=== PATIENT | female | born 1950 | race Caucasian/White ===

== ENCOUNTER 2017-05-04 10:35 | Emergency (ER) | payer MEDICARE, OTHER ==
[~2017-05-04] VITALS: Ht 165.1 cm; Wt 88.5 kg
--- NOTE | ~2017-05-04 | CR72 ---
[facility]. [facility] A Service of [facility] & [facility] RADIOLOGY TEXT RESULTS PATIENT: IVAN GIL LOCATION: SED : 48 UNIT #: [id number] AGE: [address]: Vj Smith MD SEX: F ORDER DR: [id number] [address] [address] [id number] E MR#: [id number] Acc #: [id number] NAME: IVAN GIL : 1950 SEX: F STUDY DATE/TIME: 05/04/2017 12:10 UNIT: SED ROOM: STUDY DESCRIPTION: CR Chest Single View Portable Attending Physician: Vj Smith M.D. Ordering Physician: Vj Smith M.D. Primary Care Physician: Saurabh Goel MEDICAL IMAGING REPORT This report is preliminary unless electronic signature is present. EXAM Single view chest. INDICATIONS Shortness of air and productive cough. Fever. FINDINGS Single portable AP view of the chest compared to 12/04/2016. Heart and mediastinal contours are unchanged. There is mild bibasilar airspace opacities and/or pleural effusion. No pneumothorax. IMPRESSION Mild bibasilar airspace opacities and/or small effusions. This is similar to the patient's prior study. Dictated by... Jean-Claude Marrero M.D. THIS IS AN ELECTRONICALLY VERIFIED REPORT Jean-Claude Marrero M.D. at 05/05/2017 5:11 PM AIRAM/clari TD: 05/04/2017 16:05 JOB #: [id number] MEDICAL IMAGING REPORT Page 1 of 1
--- NOTE | ~2017-05-04 | EKG ---
PATIENT: IVAN GIL UNIT #: [id number] Ventricular Rate: 132 BPM Atrial Rate: 153 BPM QRS Duration: 86 ms Q-T Interval: 296 ms QTC Calculation(Bezet): 438 ms Calculated R [place]: -30 degrees Calculated T [place]: 39 degrees Diagnosis Line: Atrial fibrillation with rapid ventricular Diagnosis Line: response Diagnosis Line: Left axis deviation Diagnosis Line: Cannot rule out Anterior infarct , age Diagnosis Line: undetermined Diagnosis Line: Abnormal ECG Diagnosis Line: When compared with ECG of 04-DEC-2016 18:56, Diagnosis Line: No significant change was found Diagnosis Line: Confirmed by GRACE RUFFIN MD ([id number]) on Diagnosis Line: 05/06/2017 12:44:40 PM INTERPRETING MD: LALY RAMOS
[~2017-05-04 10:35] MED LIST: ADVAIR 250-501 EACH IH; ADVAIR 2501 DISK W/D INH; ALB/IPRATROPIUM/1 E2 INH; ALBUTEROL17 GM; ALBUTEROL17 GM INH; ALLEGRA PO; AMITRYPTYLINE; APRESOLINE; ASPIRIN PO; ASPIRIN81 M1 PO; AUGMENTIN PO; AZITHROMYCIN1 GM PO; BROMPHED DM PO; CARDIZEM CD240 M1 PO; CIPRO PO; COMBIVENT INH14.7 GM INH; COUMADIN; COUMADIN PO; COUMADIN1 MG PO; COUMADIN2.5 MG PO; DARVOCET-N 1001 TAB; DIAZEPAM PO; DOXYCYCLINE; DOXYCYCLINE HY100 M1 PO; DOXYCYCLINE HY100 M3 PO; DUONEB 2.5-0.5 M3 ML; EPIPEN0.3 MG/0.3 INJ; GLIPIZIDE-METFO1 TA4 PO; GLUCOTROL PO; HYCODAN60 ML 5MG/; HYCODAN60 ML 5MG/ PO; ISORDIL PO; KEFLEX500 M1 PO; LASIX PO; LEVAQUIN750 MG PO; LIPITOR20 MG PO; LISINOPRIL10 MG PO; LOPRESSOR PO; MEDROL; MEDROL4 MG/DOSE- PO; METOPROLOL SUC100 MG PO; NASAL SPRAY; NASAL SPRAY30 M1; NEXIUM PO; NITROGYLCERIN SUBLINGUAL; NITROSTAT0.4 MG SL; NORVASC PO; NORVASC10 MG PO; OMEPRAZOLE20 M1 PO; OMEPRAZOLE20 M2 PO; OXYGEN; OXYGEN IH; OXYGEN INH; PERCOCET 5-3251 TAB PO; PERCOCET5/325 PO; PREDNISONE; PREDNISONE PO; PROAIR HFA8.5 GM INH; PROCARDIA10 MG; PROTONIX PO; SIMVASTATIN20 MG PO; SINGULAIR PO; SKELAXIN PO; SPIRIVA18 MCG INH; ST. JOSEPH ASPI81 M3 PO; SYMBICORT INH; TAMBOCAR PO; TESSALON200 MG PO; TOPROL XL PO; ULTRAM PO; VICODIN 5/1 TAB 5/50 PO; VICODIN PO; VITAMIN D; ZITHROMAX; ZITHROMAX PO; ZOVIRAX800 MG PO
[2017-05-04] MEDS ORDERED: LIDOCAINE1 EACH (10:43)
[2017-05-04] MEDS ORDERED: NEURONTIN100 MG (10:43)
[2017-05-04 12:16] LABS: BASOPHIL# 0.1 X10e3 (0-0.3); BASOPHIL% 0.5 % (0-2.5); EOSINOPHIL# 0.1 X10e3 (0-0.7); EOSINOPHIL% 0.7 % (0.0-7.0); HEMATOCRIT 32.1 % (35.0-45.0); LYMPHOCYTE# 1.2 X10e3 (1.0-3.5); LYMPHOCYTE% 9.3 % (17.0-45.0); MEAN CORPUSCULAR HEMOGLOBIN 24.1 PG (28-34); MEAN CORPUSCULAR HGB CONC 31.2 g/dL (30-36); MEAN PLATELET VOLUME 8.6 FL (6.5-11.5); MONOCYTE# 0.9 X10e3 (0-1.0); MONOCYTE% 7.4 % (3.0-12.0); NEUTROPHIL# 10.4 X10e3 (1.5-7.1); NEUTROPHIL% 82.1 % (40-75); PLATELET COUNT 228 X10e3 (140-420); RED BLOOD COUNT 4.16 X10e (3.90-5.30); WHITE BLOOD COUNT 12.6 X10e3 (4.0-10.5)
[2017-05-04 12:18] LABS: DIFF IND NO
[2017-05-04 12:32] LABS: POC - CKMB 1.3 ng/mL (0.0-7.9); POC - TROPONIN <0.05 ng/mL (<=0.05)
[2017-05-04 12:33] LABS: INR 2.4; PROTHROMBIN TIME (PATIENT) 26.9 SECONDS (9.5-12.4)
[2017-05-04 12:40] LABS: CALCIUM SERUM 8.9 mg/dL (8.4-10.2); GLOM FILT RATE Estimated 58.3 mL/min (>60); POTASSIUM 3.6 mmol/L (3.5-5.1)
== END 2017-05-04 14:02 | disposition home or self-care (01) ==
LOC: SED 10:35
PROVIDERS: Emergency Medicine
DX: J44.0 Chronic obstructive pulmonary disease with (acute) lower respiratory infection (principal); J20.9 Acute bronchitis, unspecified; J44.1 Chronic obstructive pulmonary disease with (acute) exacerbation; D64.9 Anemia, unspecified; I48.91 Unspecified atrial fibrillation; K21.9 Gastro-esophageal reflux disease without esophagitis; M19.90 Unspecified osteoarthritis, unspecified site; E11.9 Type 2 diabetes mellitus without complications; Z90.710 Acquired absence of both cervix and uterus; Z98.890 Other specified postprocedural states; Z88.1 Allergy status to other antibiotic agents; Z88.8 Allergy status to other drugs, medicaments and biological substances; Z91.041 Radiographic dye allergy status; Z79.899 Other long term (current) drug therapy; Z79.01 Long term (current) use of anticoagulants; Z79.84 Long term (current) use of oral hypoglycemic drugs
CPT/HCPCS: 71010; 80048; 82553; 83880; 84484; 85025; 85610; 93005; 94640; 96365; 96375; 99284; J0696; J1100

== ENCOUNTER 2017-07-09 21:14 | Emergency (ER) | payer MEDICARE, OTHER ==
[~2017-07-09] VITALS: Ht 165.1 cm; Wt 86.2 kg
--- NOTE | ~2017-07-09 | CR126 ---
[facility]. [facility] A Service of [facility] & [facility] RADIOLOGY TEXT RESULTS PATIENT: IVAN GIL LOCATION: SED : 48 UNIT #: [id number] AGE: [address]: Jordon Collier MD SEX: F ORDER DR: [id number] [address] [address] [id number] E MR#: [id number] Acc #: [id number] NAME: IVAN GIL : 1950 SEX: F STUDY DATE/TIME: 07/09/2017 21:54 UNIT: SED ROOM: STUDY DESCRIPTION: CR Foot Complete Min 3 View Lt Attending Physician: Jordon Collier M.D. Ordering Physician: Jordon Collier M.D. Primary Care Physician: Saurabh Goel MEDICAL IMAGING REPORT This report is preliminary unless electronic signature is present. EXAM Left foot 3 views 07/09/2017 HISTORY Left foot pain and swelling for 2 days. No known injury. FINDINGS Three views of the left foot demonstrate no fracture. There is degenerative change with mild narrowing of the first metatarsophalangeal joint. The bones are osteopenic. There is soft tissue swelling about the foot primarily along the forefoot. No foreign body is seen. IMPRESSION 1. Osteopenia and degenerative change. No evidence of fracture. 2. Soft tissue swelling about the left foot. No foreign body is seen. Dictated by... Giovanni Tobin M.D. THIS IS AN ELECTRONICALLY VERIFIED REPORT Giovanni Tobin M.D. at 07/10/2017 10:40 AM LUCILA/dieudonne TD: 07/10/2017 08:28 JOB #: [id number] MEDICAL IMAGING REPORT Page 1 of 1
[~2017-07-09 21:14] MED LIST changes: +LIDOCAINE1 EACH; +NEURONTIN100 MG
[2017-07-09] MEDS ORDERED: FLONASE 0.05% N16 G1 (21:31)
[2017-07-09] MEDS ORDERED: BREO ELLIPTA 21 EACH (21:31)
== END 2017-07-09 23:01 | disposition home or self-care (01) ==
LOC: SED 21:14
DX: M10.072 Idiopathic gout, left ankle and foot (principal); E11.9 Type 2 diabetes mellitus without complications; K21.9 Gastro-esophageal reflux disease without esophagitis; J45.909 Unspecified asthma, uncomplicated; Z91.030 Bee allergy status; Z91.041 Radiographic dye allergy status; Z88.1 Allergy status to other antibiotic agents
CPT/HCPCS: 36415; 73630; 84550; 99284